=== PATIENT | male | born 1945 | race Caucasian/White ===

== ENCOUNTER → 2022-02-05 | Day surgery (SDC) | payer MEDICARE ==
[2022-01-31 14:35] LABS: BASOPHILS % (AUTO) 0.4 % (0-1); EOSINOPHILS # (AUTO) 0.2 X10'3 (0-0.9); EOSINOPHILS % (AUTO) 1.8 % (0-6); LYMPHOCYTES # (AUTO) 2.1 X10'3 (1.1-4.8); LYMPHOCYTES % (AUTO) 19.2 % (21-51); MEAN CORPUSCULAR HEMOGLOBIN 30.3 PG (27.0-31.0); MEAN CORPUSCULAR HGB CONC 32.9 g/dL (33.0-36.5); MONOCYTES # (AUTO) 1.2 X10'3 (0-0.9); MONOCYTES % (AUTO) 10.5 % (2-12); NEUTROPHILS # (AUTO) 7.6 X10'3 (1.8-7.7); NEUTROPHILS % (AUTO) 68.1 % (42-75); PRE OP HEMATOCRIT 42.5 % (42.0-52.0); PRE OP PLATELET COUNT 265 X10'3 (140-440); RED BLOOD COUNT 4.62 X10'6 (4.70-6.10); RED CELL DISTRIBUTION WIDTH 12.8 % (11.5-14.5)
[2022-01-31 14:49] LABS: ALBUMIN 3.6 G/DL (3.4-5.0); ALKALINE PHOSPHATASE 117 IU/L (46-116); BLOOD UREA NITROGEN 20 MG/DL (7-18); BUN/CREATININE RATIO 11.4 (5.4-32.0); CHLORIDE 106 MMOL/L (99-107); CREATININE 1.76 MG/DL (0.60-1.10); PRE OP ALT 14 U/L (30-65); PRE OP ANION GAP 5 (8-16); PRE OP POTASSIUM 3.9 MMOL/L (3.4-5.1); PRE OP SODIUM 141 MMOL/L (135-145); TOTAL CARBON DIOXIDE 30.2 MMOL/L (24-32); eGFR 38 ML/MIN
[2022-01-31 15:00] LABS: ALBUMIN/GLOBULIN RATIO 0.9 (1.1-1.5); CALCIUM 9.2 MG/DL (8.5-10.1); PRE OP AST 18 U/L (10-37); PRE OP BILIRUB, TOTAL 0.5 MG/DL (0.0-1.0); PRE OP GLUCOSE 115 MG/DL (70-104); TOTAL PROTEIN 7.5 G/DL (6.4-8.2)
[~2022-02-05] VITALS: Ht 172.7 cm; Wt 75.0 kg
[~2022-02-05] MED LIST: ASPI-611 PO; BUPIVAcaine/PF 5 mg/ml 10ml ONE; BUPR-230 PO; DOCUMENT DATE & TIME OF BETA-BLOCKER PO ONE; DOXY-224 PO; FENTANYL CITRATE/PF 50 MCG/1 ML VIAL ONE; FLUO20CA39 PO; LISI10TA27 PO; METO-384 PO; SIMV10TA98 PO; ceFAZolin/D5W- 1GM premix 50 ML IV ONE; famotidine 20mg tablet PO ONE; hydrALAZINE 20mg/ml inj. IV ONE; midazolam 1 mg/ML 2ml injection ONE; normal saline 500ml IV soln 500 ML IV SCH
[2022-02-05 07:43] VITALS: BP 192/91
[2022-02-05 09:38] VITALS: BP 138/69
--- NOTE | 2022-02-05 09:38 | NUR ---
Received from OR via , accompanied by Anesthesiologist and OR NURSE report given by Anesthesiolgist. PT DROWSY BUT RESPONDS TO VERBAL COMMANDS. DENIES PAIN OR DISCOMFORT. DRESSING TO LEFT WRIST CDI. VSS Addendum: 02/05/22 at 0959 by Farzaneh Sung RN Amended: Links added.
[2022-02-05 09:50] VITALS: BP 126/60
[2022-02-05 10:00] VITALS: BP 120/63
[2022-02-05 10:10] VITALS: BP 120/59
[2022-02-05 10:20] VITALS: BP 126/66
--- NOTE | 2022-02-05 10:28 | NUR ---
PT MET ALL DISCHARGE CRITERIA. VSS. DENIES PAIN OR DISCOMFORT. UNDERSTANDS D/C INSTRUCTIONS. TOLERATES LIQUIDS. PT WHEELED OUT TO SPOUSE AND CAR BY STAFF WITH ONE BELONGING BAG Addendum: 02/05/22 at 1039 by Farzaneh Sung RN Amended: Links added.
== END | disposition home or self-care (01) ==
LOC: PAS 06:54
PROVIDERS: ATTEND Orthopaedic Surgery Hand Surgery
DX: G56.02 Carpal tunnel syndrome, left upper limb (principal); M19.90 Unspecified osteoarthritis, unspecified site; I10 Essential (primary) hypertension; Z79.899 Other long term (current) drug therapy; Z98.49 Cataract extraction status, unspecified eye; Z95.4 Presence of other heart-valve replacement; Z98.890 Other specified postprocedural states
CPT/HCPCS: 36415; 64721; 80053; 82948; 85025; J0360; J0690; J2250; J3010; J3490; J7030; J7040; J7120; Z7506; Z7512; A4215; A6449

== ENCOUNTER 2022-05-23 07:59 | Day surgery (SDC) | payer MEDICARE ==
[2022-05-22 12:57] LABS: BASOPHILS % (AUTO) 0.2 % (0-1); EOSINOPHILS # (AUTO) 0.3 X10'3 (0-0.9); EOSINOPHILS % (AUTO) 3.2 % (0-6); HEMATOCRIT 40.5 % (42.0-52.0); HEMOGLOBIN 13.4 g/dl (14.0-17.9); LYMPHOCYTES % (AUTO) 21.6 % (21-51); MEAN CORPUSCULAR HEMOGLOBIN 30.1 PG (27.0-31.0); MEAN CORPUSCULAR VOLUME 91.3 FL (78-98); MEAN PLATELET VOLUME 7.9 FL (7.4-10.4); MONOCYTES # (AUTO) 1.1 X10'3 (0-0.9); NEUTROPHILS # (AUTO) 5.7 X10'3 (1.8-7.7); PLATELET COUNT 256 X10'3 (140-440); RED BLOOD COUNT 4.44 X10'6 (4.70-6.10); RED CELL DISTRIBUTION WIDTH 12.9 % (11.5-14.5); WHITE BLOOD COUNT 9.1 X10'3 (4.5-11.0)
[2022-05-22 13:09] LABS: APTT 30 SECONDS (22-32)
[2022-05-22 13:12] LABS: ALANINE AMINOTRANSFERASE 13 U/L (12-78); ALBUMIN 3.5 G/DL (3.4-5.0); ALKALINE PHOSPHATASE 119 IU/L (46-116); ANION GAP 6 (8-16); BLOOD UREA NITROGEN 21 MG/DL (7-18); CHLORIDE 105 MMOL/L (99-107); POTASSIUM 4.4 MMOL/L (3.5-5.1); SODIUM 140 MMOL/L (135-145); TOTAL CARBON DIOXIDE 29.2 MMOL/L (24-32); eGFR 45 ML/MIN
[2022-05-22 13:20] LABS: ALBUMIN/GLOBULIN RATIO 0.9 (1.1-1.5); ASPARTATE AMINO TRANSFERASE 13 U/L (10-37); BILIRUBIN,TOTAL 0.5 MG/DL (0.1-1.0); GLUCOSE 104 MG/DL (70-104); TOTAL PROTEIN 7.3 G/DL (6.4-8.2)
[~2022-05-23] VITALS: Ht 172.7 cm; Wt 68.6 kg
[2022-05-23] VITALS (12 sets, daily range): BP systolic 121–143; BP diastolic 54–80
[~2022-05-23 07:59] MED LIST changes: -BUPIVAcaine/PF 5 mg/ml 10ml ONE; -DOCUMENT DATE & TIME OF BETA-BLOCKER PO ONE; -FENTANYL CITRATE/PF 50 MCG/1 ML VIAL ONE; -ceFAZolin/D5W- 1GM premix 50 ML IV ONE; -famotidine 20mg tablet PO ONE; -hydrALAZINE 20mg/ml inj. IV ONE; -midazolam 1 mg/ML 2ml injection ONE; -normal saline 500ml IV soln 500 ML IV SCH
[2022-05-23] MEDS ORDERED: LORazepam 0.5 MG tablet PO PRN (08:15)
[2022-05-23] MEDS ORDERED: normal saline 1,000 ML IV SCH (08:15)
[2022-05-23] MEDS ORDERED: nitroGLYCERIN 0.4mg SUBLingual tab SL PRN (08:15)
[2022-05-23] MEDS ORDERED: diphenhydrAMINE 25mg capsule PO PRN (08:15)
[2022-05-23] MEDS ORDERED: ASPI-1264 PO (08:48)
[2022-05-23] MEDS ORDERED: fentaNYL/PF 50MCG/1 ML 2ML syringe ONE (09:55)
[2022-05-23] MEDS ORDERED: LIDOcaine 1% 30ml preserv. free vial ONE (09:55)
[2022-05-23] MEDS ORDERED: iohexol 350MG/ML 100ml bottle IV ONE ×2 (09:55→10:52)
[2022-05-23] MEDS ORDERED: midazolam 1 mg/ML 2ml injection ONE ×2 (09:55→11:19)
[2022-05-23] MEDS ORDERED: HYDROcodone/acetaminophen 10/325mg tab PO PRN (12:15)
[2022-05-23] MEDS ORDERED: HYDROcodone/acetaminophen 5mg/325mg tablet PO PRN (12:15)
[2022-05-23] MEDS ORDERED: OXAZEpam 15mg capsule PO PRN (12:15)
[2022-05-23] MEDS ORDERED: proCHLORperazine 10 MG/2 ml inj IV PRN (12:15)
[2022-05-23] MEDS ORDERED: ondansetron/PF 4mg/2ml inj IV PRN (12:15)
[2022-05-23] MEDS ORDERED: normal saline 1000ml 1,000 ML IV ONE (12:15)
--- NOTE | 2022-05-23 16:58 | NUR ---
Written and verbal DC instructions given to pt and , both verbalize understanding. VSS, denies pain, PIV DC cath intact. Right groin site stable, no bleeding, bruising or hematoma noted, dressing CD&I. DC to home with , transferred to private car via WC, pt able to transfer self to car, gait steady.
== END 2022-05-23 17:00 | disposition home or self-care (01) ==
LOC: SSTAY O 07:59
PROVIDERS: ATTEND Internal Medicine Cardiovascular Disease
DX: I25.119 Atherosclerotic heart disease of native coronary artery with unspecified angina pectoris (principal); E11.9 Type 2 diabetes mellitus without complications; M19.90 Unspecified osteoarthritis, unspecified site; E78.5 Hyperlipidemia, unspecified; I10 Essential (primary) hypertension; Z98.890 Other specified postprocedural states; Z95.2 Presence of prosthetic heart valve; Z87.891 Personal history of nicotine dependence; Z79.899 Other long term (current) drug therapy; Z79.01 Long term (current) use of anticoagulants
CPT/HCPCS: 36415; 71046; 80053; 83880; 84484; 85025; 85610; 85730; 93458; 93567; 99152; 99153; C1760; C1769; J1644; J2250; J3010; J3490; J7030; Q0163; Q9967